=== PATIENT | female | born 1990 | race Caucasian/White ===

== ENCOUNTER 2016-10-09 21:16 | Emergency (ER) | payer MEDICAID ==
[~2016-10-09] VITALS: Ht 160 cm; Wt 127.0 kg
[2016-10-09 22:07] LABS: Urine Bilirubin Negative (Negative); Urine Blood Negative /uL (Negative); Urine Color Yellow (Yellow); Urine Glucose Normal (Normal); Urine Ketone Negative (Negative); Urine Mucus FEW (None Seen); Urine Nitrite Negative (Negative); Urine RBC 1 /hpf (0 - 4); Urine Squamous Epithelial Cell FEW /hpf (<5); Urine Urobilinogen Normal (Negative); Urine pH 6.5 (5.0-8.0)
[2016-10-09 22:18] LABS: Basophils # (auto) 0.1 uL; Basophils % (auto) 0.6 % (0.0-2.0); CONDITION Y; Eosinophils # (auto) 0.1 uL; Eosinophils % (auto) 0.9 % (0.0-7.0); Hematocrit 35.8 % (36.0-46.0); Hemoglobin 12.4 g/dL (12.2-16.2); Lymphocytes # (auto) 3.5 uL; Lymphocytes % (auto) 27.1 % (10.0-50.0); Mean Corpuscular Hemoglobin 31.9 pg (28.0-32.0); Mean Corpuscular Hgb Conc. 34.7 g/dL (32.0-36.0); Mean Corpuscular Volume 92.1 fL (80.0-100.0); Mean Platelet Volume 8.6 fL (7.4-10.4); Monocytes # (auto) 0.8 uL; Monocytes % (auto) 6.4 % (0.0-12.0); Neutrophils # (auto) 8.3 uL; Platelet Count (auto) 278 10^3/uL (140-450); Red Cell Distribution Width 14.2 % (11.6-16.0); White Blood Cell 12.8 10^3/uL (4.4-10.8)
[2016-10-09 22:32] LABS: INR 0.87 (0.9-1.15); Partial Thromboplastin Time 27.8 sec (22.64-33.71); Prothrombin Time 9.5 sec (9.37-12.3)
[2016-10-09 22:38] LABS: BUN/Creatinine Ratio 10.6; Bilirubin, Total 0.3 mg/dL (0.2-1.0); Calcium 8.8 mg/dL (8.5-10.1); Potassium 3.7 mmol/L (3.5-5.1); Total Protein 7.4 g/dL (6.4-8.2)
[2016-10-10 00:11] LABS: Allen Test Yes; Base Excess -3.8 mmol/L (-2.0-2.0); Blood 02Sat 95.6 % (96-100); Blood COHb 0.3 % (0.5-1.5); Blood MetHb 0.3 % (0.0-1.5); HCO3 18.9 mmol/L (22-26.0); HHb 4.4 % (0.0-5.0); MODE ROOM AIR; PCO2 27.9 mmHg (35.0-45.0); PCO2(T) 27.9 mmHg (35.0-45.0); PO2 87.1 mmHg (80.0-100.0); PO2(T) 87.1 mmHg (80.0-100.0); Sample Type Arterial; pH 7.448 (7.350-7.450)
[2016-10-10] MEDS ORDERED: LORazepam 0.5 MG TAB PO ONE (01:45)
[2016-10-10 02:29] VITALS: BP 138/87
== END 2016-10-10 02:48 | disposition home or self-care (01) ==
LOC: ER 21:21
DX: O26.892 Other specified pregnancy related conditions, second trimester (principal); R06.4 Hyperventilation; Z3A.25 25 weeks gestation of pregnancy
CPT/HCPCS: 36415; 36600; 80053; 81001; 82805; 85025; 85610; 85730; 93005

== ENCOUNTER 2016-11-20 22:48 | Observation (INO) | payer MEDICAID ==
[~2016-11-20] VITALS: Ht 160 cm; Wt 131.5 kg
[2016-11-21] MEDS ORDERED: PREN-96 PO
[2016-11-21] MEDS ORDERED: FAMO-12 PO
[2016-11-21] MEDS ORDERED: METH250T21 PO
[2016-11-21 00:01] LABS: Urine Bilirubin Negative (Negative); Urine Blood Negative /uL (Negative); Urine Color Yellow (Yellow); Urine Glucose Normal (Normal); Urine Ketone Negative (Negative); Urine Mucus FEW (None Seen); Urine Nitrite Negative (Negative); Urine RBC 1 /hpf (0 - 4); Urine Squamous Epithelial Cell FEW /hpf (<5); Urine Urobilinogen Normal (Negative); Urine pH 5.5 (5.0-8.0)
[2016-11-21 00:30] LABS: Basophils # (auto) 0.1 uL; Basophils % (auto) 0.5 % (0.0-2.0); Eosinophils # (auto) 0.1 uL; Hematocrit 35.1 % (36.0-46.0); Hemoglobin 11.8 g/dL (12.2-16.2); Lymphocytes # (auto) 3.8 uL; Lymphocytes % (auto) 26.5 % (10.0-50.0); Mean Corpuscular Hemoglobin 30.8 pg (28.0-32.0); Mean Corpuscular Hgb Conc. 33.6 g/dL (32.0-36.0); Mean Corpuscular Volume 91.7 fL (80.0-100.0); Monocytes % (auto) 7.2 % (0.0-12.0); Neutrophils # (auto) 9.3 uL; Neutrophils % (auto) 64.8 % (37.0-80.0); Nucleated Red Blood Cells % 0.1 %; Platelet Count (auto) 249 10^3/uL (140-450); Red Cell Distribution Width 13.3 % (11.6-16.0); White Blood Cell 14.3 10^3/uL (4.4-10.8)
[2016-11-21 00:42] LABS: INR 0.91 (0.9-1.15); Partial Thromboplastin Time 26.8 sec (22.64-33.71); Prothrombin Time 9.9 sec (9.37-12.3)
[2016-11-21 00:50] LABS: Albumin 2.8 g/dL (3.4-5.0); Calcium 8.8 mg/dL (8.5-10.1); Potassium 4.6 mmol/L (3.5-5.1)
[2016-11-21 00:53] LABS: Bilirubin, Total 0.3 mg/dL (0.2-1.0); Total Protein 6.9 g/dL (6.4-8.2)
== END 2016-11-21 01:51 | disposition home or self-care (01) | DRG 566 ==
LOC: LDRP 22:48
PROVIDERS: ADMIT Specialist; ATTEND Specialist
DX: O23.43 Unspecified infection of urinary tract in pregnancy, third trimester (principal); O62.9 Abnormality of forces of labor, unspecified; Z3A.31 31 weeks gestation of pregnancy
CPT/HCPCS: 36415; 59025; 76818; 80053; 80307; 81001; 81002; 84550; 85025; 85610; 85730; 86850; 86900; 86901; G0378